=== PATIENT | female | born 1955 | race Caucasian/White ===

== ENCOUNTER 2018-04-28 17:51 | Emergency (ER) | payer OTHER, MEDICAID ==
[2018-04-28] MEDS: LIDOCAINE/MYLANTA 40 ML BTL PO (22:43)
[2018-04-28] MEDS: ASPIRIN 325 MG TAB PO (22:43)
[2018-04-28 22:47] LABS: ADD MAN DIFF? NO
[2018-04-28 22:49] LABS: WHITE BLOOD COUNT 10.9 10^3/ul (4.8-10.8)
[2018-04-28 22:49] LABS: BASOPHIL # 0.1 10^3/ul (0.0-0.1); BASOPHILS % 0.6 % (0.0-2.0); EOSINOPHILS # 0.1 10^3/ul (0.0-0.5); EOSINOPHILS % 0.6 % (0.0-7.0); HEMATOCRIT 39.5 % (37.0-47.0); HEMOGLOBIN 13.6 g/dl (12.0-16.0); LYMPHOCYTES # 3.1 10^3/ul (0.8-2.9); LYMPHOCYTES % 28.6 % (15.0-51.0); MEAN CORPUSCULAR HEMOGLOBIN 29.1 pg (29.0-33.0); MEAN CORPUSCULAR HGB CONC 34.4 g/dl (32.0-37.0); MEAN CORPUSCULAR VOLUME 84.4 fl (82.0-101.0); MEAN PLATELET VOLUME 10.1 fl (7.4-10.4); MONOCYTE # 0.5 10^3/ul (0.3-0.9); NEUTROPHIL # 7.1 10^3/ul (1.6-7.5); NEUTROPHILS % 64.7 % (39.0-77.0); PLATELET COUNT 287 10^3/UL (140-415); RED BLOOD COUNT 4.68 10^6/ul (4.20-5.40); RED CELL DISTRIBUTION WIDTH 12.6 % (11.5-14.5)
[2018-04-28 23:24] LABS: ANION GAP 19 (8-16); BLOOD UREA NITROGEN 22 mg/dl (7-20); CALCIUM 9.6 mg/dl (8.4-10.2); CARBON DIOXIDE 26 mmol/L (21-31); CHLORIDE 102 mmol/L (97-110); CREATININE 0.91 mg/dl (0.44-1.00); GLUCOSE 103 mg/dl (70-220); POTASSIUM 3.5 mmol/L (3.5-5.1); SODIUM 143 mmol/L (135-144)
[2018-04-28 23:35] LABS: B-TYPE NATRIURETIC PEPTIDE 151 PG/ML (0-125)
[2018-04-28 23:40] LABS: TROPONIN-I < 0.012 ng/ml (0.000-0.120)
[2018-04-29] MEDS ORDERED: ONDANSETRON 4 MG INJ IV ×2 (02:00)
[2018-04-29] MEDS ORDERED: ACETAMINOPHEN 500 MG TAB PO (02:00)
[2018-04-29] MEDS: SOD CHLORIDE 0.9% 1,000 ML IV (05:05)
[2018-04-29] MEDS: NITROGLYCERIN 2% 1 GM OINT PKT TD (06:00)
[2018-04-29 06:17] LABS: ADD MAN DIFF? NO
[2018-04-29 06:36] LABS: BASOPHIL # 0.1 10^3/ul (0.0-0.1); BASOPHILS % 0.8 % (0.0-2.0); EOSINOPHILS # 0.1 10^3/ul (0.0-0.5); EOSINOPHILS % 1.7 % (0.0-7.0); HEMATOCRIT 38.2 % (37.0-47.0); HEMOGLOBIN 12.6 g/dl (12.0-16.0); LYMPHOCYTES # 3.1 10^3/ul (0.8-2.9); LYMPHOCYTES % 39.7 % (15.0-51.0); MEAN CORPUSCULAR HEMOGLOBIN 28.6 pg (29.0-33.0); MEAN CORPUSCULAR VOLUME 86.8 fl (82.0-101.0); MEAN PLATELET VOLUME 10.1 fl (7.4-10.4); MONOCYTE # 0.5 10^3/ul (0.3-0.9); MONOCYTES % 6.2 % (0.0-11.0); NEUTROPHILS % 51.1 % (39.0-77.0); PLATELET COUNT 270 10^3/UL (140-415); RED CELL DISTRIBUTION WIDTH 12.6 % (11.5-14.5)
[2018-04-29 06:36] LABS: WHITE BLOOD COUNT 7.8 10^3/ul (4.8-10.8)
[2018-04-29 06:52] LABS: ANION GAP 17 (8-16); BLOOD UREA NITROGEN 22 mg/dl (7-20); CALCIUM 9.5 mg/dl (8.4-10.2); CARBON DIOXIDE 31 mmol/L (21-31); CHLORIDE 102 mmol/L (97-110); CHOL/HDL RATIO 3.5 RATIO; CHOLESTEROL 150 mg/dl (100-200); CREATININE 0.85 mg/dl (0.44-1.00); GLUCOSE 100 mg/dl (70-220); HDL CHOLESTEROL 42 mg/dl (35-98); LDL CHOLESTEROL,CALCULATED 84 mg/dl; SODIUM 146 mmol/L (135-144); TRIGLYCERIDES 120 mg/dl (0-149)
[2018-04-29 07:02] LABS: CK-MB 0.83 ng/ml (0.0-2.4)
[2018-04-29 07:05] LABS: CK INDEX 1.8; CREATINE KINASE 47 IU/L (23-200)
[2018-04-29 07:07] LABS: TROPONIN-I < 0.012 ng/ml (0.000-0.120)
[2018-04-29] MEDS: AMLODIPINE 10 MG TAB PO (10:29)
[2018-04-29] MEDS: MINOXIDIL 2.5 MG TAB PO (10:29)
[2018-04-29] MEDS: CHOLECALCIFEROL 2,000 UNIT CAP PO (10:30)
[2018-04-29] MEDS: CHLORTHALIDONE 25 MG TAB PO (10:30)
[2018-04-29] MEDS: LOSARTAN 50 MG TAB PO (10:30)
[2018-04-29] MEDS: ASPIRIN (EC) 81 MG TAB PO (10:30)
[2018-04-29 12:03] LABS: CREATINE KINASE 48 IU/L (23-200)
[2018-04-29 12:15] LABS: CK INDEX 1.3
[2018-04-29 12:27] LABS: TROPONIN-I < 0.012 ng/ml (0.000-0.120)
[2018-04-29] MEDS ORDERED: ATORVASTATIN 40 MG TAB PO (21:00)
== END 2018-04-29 13:21 | disposition home or self-care (01) ==
LOC: E/R 04-29 13:21
DX: M25.471 Effusion, right ankle (principal); Z88.2 Allergy status to sulfonamides
CPT/HCPCS: 36415; 71045; 80048; 80061; 82550; 82553; 83880; 84484; 85025; 93005; 99285-25

== ENCOUNTER 2018-05-02 22:48 | Inpatient (IN) | payer MEDICARE, OTHER ==
[2018-05-03 01:35] LABS: ADD MAN DIFF? NO
[2018-05-03 01:39] LABS: WHITE BLOOD COUNT 8.4 10^3/ul (4.8-10.8)
[2018-05-03 01:39] LABS: BASOPHIL # 0.1 10^3/ul (0.0-0.1); BASOPHILS % 0.7 % (0.0-2.0); EOSINOPHILS # 0.1 10^3/ul (0.0-0.5); EOSINOPHILS % 1.2 % (0.0-7.0); HEMATOCRIT 41.2 % (37.0-47.0); HEMOGLOBIN 13.8 g/dl (12.0-16.0); LYMPHOCYTES # 2.9 10^3/ul (0.8-2.9); MEAN CORPUSCULAR HEMOGLOBIN 28.5 pg (29.0-33.0); MEAN CORPUSCULAR HGB CONC 33.5 g/dl (32.0-37.0); MEAN CORPUSCULAR VOLUME 85.1 fl (82.0-101.0); MEAN PLATELET VOLUME 9.9 fl (7.4-10.4); MONOCYTE # 0.5 10^3/ul (0.3-0.9); MONOCYTES % 6.2 % (0.0-11.0); NEUTROPHIL # 4.7 10^3/ul (1.6-7.5); NEUTROPHILS % 56.7 % (39.0-77.0); PLATELET COUNT 319 10^3/UL (140-415); RED BLOOD COUNT 4.84 10^6/ul (4.20-5.40); RED CELL DISTRIBUTION WIDTH 12.4 % (11.5-14.5)
[2018-05-03 02:00] LABS: ANION GAP 20 (8-16); BLOOD UREA NITROGEN 22 mg/dl (7-20); CALCIUM 10.2 mg/dl (8.4-10.2); CARBON DIOXIDE 27 mmol/L (21-31); CHLORIDE 100 mmol/L (97-110); CREATININE 0.99 mg/dl (0.44-1.00); GLUCOSE 111 mg/dl (70-220); POTASSIUM 3.6 mmol/L (3.5-5.1); SODIUM 143 mmol/L (135-144)
[2018-05-03 02:12] LABS: TROPONIN-I < 0.012 ng/ml (0.000-0.120)
[2018-05-03] MEDS ORDERED: ONDANSETRON 4 MG INJ IV ×2 (06:30→15:30)
[2018-05-03 07:36] LABS: PARTIAL THROMBOPLASTIN TIME 27.5 Sec (25.0-35.0)
[2018-05-03 07:44] LABS: TROPONIN-I < 0.012 ng/ml (0.000-0.120)
[2018-05-03] MEDS: MINOXIDIL 2.5 MG TAB PO (09:51)
[2018-05-03] MEDS: LOSARTAN 50 MG TAB PO (09:52)
[2018-05-03] MEDS: CHLORTHALIDONE 25 MG TAB PO (09:52)
[2018-05-03] MEDS: CHOLECALCIFEROL 2,000 UNIT CAP PO (12:00)
[2018-05-03] MEDS ORDERED: HEPARIN 1000 UNITS/ML 10 ML INJ (13:26)
[2018-05-03] MEDS ORDERED: IODIXANOL LOCM 100 ML BTL ×4 (13:26→15:10)
[2018-05-03] MEDS ORDERED: LIDOCAINE 1% (MDV) 10 ML INJ (13:26)
[2018-05-03] MEDS ORDERED: NITROGLYCERIN (IC) 100 MCG/ML INJ ×2 (13:27→15:04)
[2018-05-03] MEDS ORDERED: FENTAnyl 50 MCG/ML VIAL (13:27)
[2018-05-03] MEDS ORDERED: VERAPAMIL 5 MG INJ (13:27)
[2018-05-03] MEDS ORDERED: MIDAZOLAM 1 MG/ML 2 ML INJ (13:27)
[2018-05-03] MEDS ORDERED: IOHEXOL 350MG/ML 50 ML BTL (14:11)
[2018-05-03] MEDS ORDERED: CLOPIDOGREL 300 MG TAB (15:15)
[2018-05-03] MEDS ORDERED: ASPIRIN 325 MG TAB (15:15)
[2018-05-03] MEDS ORDERED: OXYCODONE/ACETAMINOPHEN (5/325) TAB PO (15:30)
[2018-05-03] MEDS ORDERED: morphine 2 MG INJ IV (15:30)
[2018-05-03] MEDS ORDERED: ACETAMINOPHEN 325 MG TAB PO (15:30)
[2018-05-03] MEDS ORDERED: AL HYDROX/MG HYDROX/SIMETH 30 ML CUP PO (15:30)
[2018-05-03] MEDS: SOD CHLORIDE 0.9% 1,000 ML IV (16:10)
[2018-05-03 17:33] LABS: CREATINE KINASE 30 IU/L (23-200)
[2018-05-03 17:45] LABS: CK INDEX 0.7; TROPONIN-I < 0.010 ng/ml (0.000-0.120)
[2018-05-03 17:49] LABS: CK-MB < 0.22 ng/ml (0.0-2.4)
[2018-05-03] MEDS: ATORVASTATIN 40 MG TAB PO (20:43)
[2018-05-04] MEDS: PANTOPRAZOLE (EC) 40 MG TAB PO (05:05)
[2018-05-04 05:30] LABS: ADD MAN DIFF? NO
[2018-05-04 05:33] LABS: WHITE BLOOD COUNT 6.3 10^3/ul (4.8-10.8)
[2018-05-04 05:33] LABS: BASOPHIL # 0.1 10^3/ul (0.0-0.1); BASOPHILS % 0.8 % (0.0-2.0); EOSINOPHILS # 0.1 10^3/ul (0.0-0.5); EOSINOPHILS % 1.4 % (0.0-7.0); HEMATOCRIT 33.5 % (37.0-47.0); HEMOGLOBIN 11.2 g/dl (12.0-16.0); LYMPHOCYTES # 1.8 10^3/ul (0.8-2.9); LYMPHOCYTES % 28.8 % (15.0-51.0); MEAN CORPUSCULAR HEMOGLOBIN 28.5 pg (29.0-33.0); MEAN CORPUSCULAR HGB CONC 33.4 g/dl (32.0-37.0); MEAN CORPUSCULAR VOLUME 85.2 fl (82.0-101.0); MEAN PLATELET VOLUME 10.1 fl (7.4-10.4); MONOCYTE # 0.4 10^3/ul (0.3-0.9); MONOCYTES % 6.3 % (0.0-11.0); NEUTROPHIL # 3.9 10^3/ul (1.6-7.5); NEUTROPHILS % 61.9 % (39.0-77.0); PLATELET COUNT 237 10^3/UL (140-415); RED BLOOD COUNT 3.93 10^6/ul (4.20-5.40); RED CELL DISTRIBUTION WIDTH 12.4 % (11.5-14.5)
[2018-05-04 06:00] LABS: ANION GAP 16 (8-16); BLOOD UREA NITROGEN 20 mg/dl (7-20); CALCIUM 8.8 mg/dl (8.4-10.2); CARBON DIOXIDE 27 mmol/L (21-31); CHLORIDE 101 mmol/L (97-110); CHOL/HDL RATIO 4.3 RATIO; CHOLESTEROL 127 mg/dl (100-200); CREATINE KINASE 43 IU/L (23-200); CREATININE 0.97 mg/dl (0.44-1.00); GLUCOSE 102 mg/dl (70-220); HDL CHOLESTEROL 29 mg/dl (35-98); LDL CHOLESTEROL,CALCULATED 66 mg/dl; POTASSIUM 3.6 mmol/L (3.5-5.1); SODIUM 140 mmol/L (135-144); TRIGLYCERIDES 161 mg/dl (0-149)
[2018-05-04 06:12] LABS: CK INDEX 5.3; CK-MB 2.26 ng/ml (0.0-2.4)
[2018-05-04 06:26] LABS: TROPONIN-I 0.313 ng/ml (0.000-0.120)
[2018-05-04] MEDS: ASPIRIN (EC) 81 MG TAB PO (08:22)
[2018-05-04] MEDS: LOSARTAN 50 MG TAB PO (08:22)
[2018-05-04] MEDS: CLOPIDOGREL 75 MG TAB PO (08:22)
[2018-05-04] MEDS: CHLORTHALIDONE 25 MG TAB PO (08:23)
[2018-05-04] MEDS: MINOXIDIL 2.5 MG TAB PO (08:26)
[2018-05-04] MEDS: ENOXAPARIN 40 MG/0.4 ML SYG SC (08:29)
[2018-05-04] MEDS: CHOLECALCIFEROL 2,000 UNIT CAP PO (08:30)
[2018-05-04] MEDS ORDERED: ASPIRIN 81 MG TAB PO (09:00)
== END 2018-05-04 11:00 | disposition home or self-care (01) | DRG 246 ==
LOC: E/R 22:48 → MS3 05-03 03:21 → ICU 05-03 16:10
PROC: 027237Z Dilation of Coronary Artery, Three Arteries with Four or More Drug-eluting Intraluminal Devices, Percutaneous Approach (ICD-10-PCS; principal; 2018-05-03 13:34)
PROC: 4A023N7 Measurement of Cardiac Sampling and Pressure, Left Heart, Percutaneous Approach (ICD-10-PCS; 2018-05-03 13:34)
PROC: B2011ZZ Plain Radiography of Multiple Coronary Arteries using Low Osmolar Contrast (ICD-10-PCS; 2018-05-03 13:34)
DX: I25.110 Atherosclerotic heart disease of native coronary artery with unstable angina pectoris (principal); I10 Essential (primary) hypertension; E78.5 Hyperlipidemia, unspecified; Z95.5 Presence of coronary angioplasty implant and graft; I25.2 Old myocardial infarction
CPT/HCPCS: 36415; 71045; 80048; 80061; 82550; 82553; 84484; 85025; 85730; 87081; 93005; 93458; 99217; 99285-25